=== PATIENT | female | born 1990 | race Caucasian/White ===

== ENCOUNTER 2024-04-23 12:01 | Emergency (ER) | payer OTHER, SELFPAY ==
[2024-04-23 12:03] VITALS: BP 112/78; PULSE 80; RESP 16; TEMP 36.7; O2SAT 98; BMI 31.1
--- NOTE | 2024-04-23 12:19 | XR_ITS ---
FINAL REPORT CLINICAL HISTORY: rolled ankle, heard pop , lateral foot pain FINDINGS: AP, oblique and lateral views of the left foot were obtained. There is a nondisplaced fracture through the base of the fifth metatarsal. There is an age-indeterminate fracture through the navicular which may be old. No other fracture is identified. Joint spaces are preserved. There is soft tissue edema along the lateral midfoot. IMPRESSION: Acute fracture through the base of the fifth metatarsal. Age-indeterminate fracture through the navicular. Reviewed, Interpreted and Dictated by Donna Garcia MD Transcribed by Noy Rizzo Authenticated and [facility]
--- NOTE | 2024-04-23 12:19 | XR_ITS ---
FINAL REPORT CLINICAL HISTORY: rolled ankle, heard pop , lateral foot pain FINDINGS: LEFT ANKLE Three views demonstrate a fracture at the base of the fifth metatarsal. No other fracture is identified of the ankle. Mortise is intact. The visualized joint spaces are normally aligned. The soft tissues are unremarkable. IMPRESSION: No fracture of the ankle. Fracture of the base of the fifth metatarsal. Reviewed, Interpreted and Dictated by Donna Garcia MD Transcribed by Noy Rizzo Authenticated and . [facility]
[2024-04-23] MEDS: ACETAMINOPHEN 500MG TAB 1000 MG PO (12:25)
[2024-04-23] MEDS: IBUPROFEN 600 MG TABLET PO (12:25)
--- NOTE | 2024-04-23 13:20 | HMH.EDGENADL ---
Discharge Plan Disposition Patient Disposition: Home, Self-Care Prescriptions Prescriptions: New hydrocodone-acetaminophen 5-325 mg tablet 1 tab PO Q6H PRN (Reason: pain) 3 Days Qty: 12 0RF Referrals Follow up/Referrals: Brandon Alejo DO [Staff Physician] - See instructions Provider,Referral, [Primary Care Provider] - See instructions Activity Restrictions/Add. Instructions Additional Instructions/Restrictions: Please remain nonweightbearing until you follow-up with Dr. Alejo within 1 to 2 weeks. Clinical Impressions Clinical Impression: Fracture of base of fifth metatarsal bone Print Language Print Language: Syrian Discharge ED Provider: Ely Canales General Adult HPI General Chief complaint: Extremity Injury, Lower Stated complaint: [id number] Bruising And swelling L foot Time Seen by Provider: 04/23/24 12:49 Mode of Arrival: Family Vehicle Source of Information: Patient Limitations: No Limitations Description of Symptoms (Recalled from ER Triage Doc. by RN): Pt c/o left lateral foot pain after rolling/popping when she went to stand on it this Am @ 1130. States she heard a pop . No meds [employer]. Mild swelling and bruising to lateral/anterior foot. History of Present Illness HPI narrative: Patient is a 33-year-old female presenting today with a foot injury. States her foot fell asleep and she tried to walk on it and it rolled and popped along the lateral mid side of her foot. Significant swelling and pain has occurred since that time. No injuries elsewhere. Related Data Previous Rx's ?Medication ?Instructions ?Recorded hydrocodone 5 mg-acetaminophen 325 1 tab PO Q6H PRN pain 3 days #12 04/23/24 mg tablet tabs Allergies Allergy/AdvReac Type Severity Reaction Status Date / Time Penicillins Allergy Anaphylaxis Verified 04/23/24 12:18 [facility] Disclaimer: The information contained in this section may have been updated after the patient was seen, as this information can be updated by other users. Social History Smoking Status: Never smoker alcohol intake: never current occupational status: other Travel in the last 8 weeks: None ROS Obtained: Yes All systems reviewed & no additional complaints except as documented Physical Exam General General appearance: alert and in no apparent distress Respiratory Respiratory exam: Present normal lung sounds bilaterally Cardiovascular Cardiovascular exam: Present regular rate Extremities Exam Extremities exam: Present other (Tenderness pain and swelling over the base of the fifth metatarsal on the left foot no pain or swelling elsewhere neurovascular intact) Neurological Exam Neurological exam: Present alert Medical Decision Making Medical Records Screening: Per USPSTF and CDC recommendations, given the prevalence of disease in our region, it is our hospital?s policy to screen for HIV and viral Hepatitis for all patients aged 18 and over and those with ongoing risk factors. Barrett Inquiry Pt receiving controlled substance: No Vital Signs: 04/23/24 12:03 Temperature 98.0 F Temperature Source Temporal Artery Scan Pulse Rate [Right] 80 Respiratory Rate 16 Blood Pressure [Right Arm] 112/78 Blood Pressure Mean [Right Arm] 89 Blood Pressure Source [Right Arm] Automatic Cuff 02 Sat by Pulse Oximetry 98 Oxygen Delivery Method Room Air Orders (Tests/Meds): ED MEDICATIONS Discontinued Medications Generic Name Dose Route Start Last Admin Trade Name Freq PRN Reason Stop Dose Admin Acetaminophen 1,000 mg 04/23/24 12:19 04/23/24 12:25 Acetaminophen 500mg Tab PO 04/23/24 12:20 1,000 mg ONCE ONE Administration Ibuprofen 600 mg 04/23/24 12:19 04/23/24 12:25 Ibuprofen 600 Mg Tablet PO 04/23/24 12:20 600 mg ONCE ONE Administration ORDERS Category Date Time Status XR ankle LT min 3V Stat Exams 04/23/24 12:19 Taken XR foot LT min 3V Stat Exams 04/23/24 12:19 Taken Medical Decision Narrative: History as above x-ray performed to rule out fracture dislocation which I personally interpreted which shows a fracture line predominantly at the base of the fifth but does on the AP view seem to be more proximal most likely this is a pseudo Gardner but we will treat it as a Gardner fracture in the event that it is more significant. She will remain nonweightbearing was placed in a posterior slab and stirrup splint and given crutches. She will follow-up with Dr. Alejo within 1 to 2 weeks. Critical Care Critical Care Time Critical Care Time: No
[2024-04-23 13:30] VITALS: BP 112/78; PULSE 80; RESP 16; TEMP 36.7
== END 2024-04-23 13:31 | disposition home or self-care (01) ==
PROVIDERS: Emergency Provider Student in an Organized Health Care Education/Training Program
DX: S92.352A Displaced fracture of fifth metatarsal bone, left foot, initial encounter for closed fracture (principal); M79.672 Pain in left foot; X58.XXXA Exposure to other specified factors, initial encounter; Y93.89 Activity, other specified; Y92.009 Unspecified place in unspecified non-institutional (private) residence as the place of occurrence of the external cause
CPT/HCPCS: 73610; 73630; 99283

== ENCOUNTER 2024-05-29 09:08 | Outpatient (CLI) | payer OTHER, SELFPAY ==
--- NOTE | 2024-05-29 09:11 | XR_ITS ---
FINAL REPORT CLINICAL HISTORY: lt foot fx COMPARISON: 04/23/2024 FINDINGS: Left foot Three views were obtained. The previously noted fracture at the base of the fifth metatarsal is less evident. There is mild irregularity at the healing fracture margin. Moderate plantar spur is identified. IMPRESSION: Healing fracture as above. Reviewed, Interpreted and Dictated by Parminder Damon MD Transcribed by Migdalia Manzano Authenticated and [facility]
== END 2024-05-29 23:59 | disposition home or self-care (01) ==
LOC: RAD 09:09
PROVIDERS: Visit Provider Orthopaedic Surgery
DX: M79.672 Pain in left foot (principal)
CPT/HCPCS: 73630